=== PATIENT | female | born 1935 | race Caucasian/White ===

== ENCOUNTER 2016-07-07 13:47 | Inpatient (IN) | payer OTHER, MEDICARE ==
[~2016-07-07] VITALS: Ht 162.6 cm; Wt 72.8 kg
[2016-07-07 13:45] VITALS: BP 175/73
[~2016-07-07 13:47] MED LIST: APRESOLINE25 MG PO; ASPIRIN EC325 MG PO; ASPIRIN81 M1; BENICAR40 MG PO; BYSTOLIC10 MG PO; CALCIUM 500-VI1 EACH PO; CALTRATE 600600 MG PO; CALTRATE600 MG; CEFTIN500 MG PO; CENTRUM SILVER1 EAC4 PO; CITALOPRAM HBR10 MG PO; HYDROCHLOROTH12.5 M1; HYDROCHLOROTHIA25 MG PO; KEFLEX500 MG PO; LIPITOR10 MG; LIPITOR10 MG PO; LO-DOSE ASPIRIN81 M1 PO; PERCOCET 5/31 TABLET PO; PREVACID30 MG; PROLIA60 MG/1 ML SC; SPIRONOLACTONE25 MG PO; TOPROL XL100 MG; TRAMADOL HCL50 MG PO; VICODIN 5-3001 EACH PO; XANAX0.25 MG PO; ZANTAC150 MG PO; ZOFRAN ODT4 MG PO
[2016-07-07 23:30] VITALS: BP 160/68
[2016-07-08 05:40] VITALS: BP 164/66
[2016-07-08 15:04] VITALS: BP 118/59
[2016-07-09 05:40] VITALS: BP 172/62
[2016-07-09 06:34] VITALS: BP 140/62
[2016-07-09 15:16] VITALS: BP 133/58
[2016-07-10 06:02] VITALS: BP 155/67
[2016-07-10 15:25] VITALS: BP 117/56
[2016-07-11 04:00] VITALS: BP 157/70
[2016-07-11 15:22] VITALS: BP 120/58
[2016-07-12 06:00] VITALS: BP 157/68
[2016-07-12 14:46] VITALS: BP 121/69
[2016-07-13 05:23] VITALS: BP 155/74
[2016-07-13 15:30] VITALS: BP 148/68
[2016-07-14 05:32] VITALS: BP 149/70
[2016-07-14 15:27] VITALS: BP 142/63
[2016-07-15 06:02] VITALS: BP 149/67
[2016-07-15 06:09] LABS: BASOPHIL COUNT 0.1 K/uL (0-0.1); EOSINOPHIL (%) 5.5 % (0-5); EOSINOPHIL COUNT 0.5 K/uL (0-0.3); HEMATOCRIT 36.4 % (36.0-46.0); IMMATURE GRANULOCYTE (%) 0.5 % (0.0-0.7); LYMPHOCYTE COUNT 3.5 K/uL (1.0-2.8); MCHC 32.4 G/DL (30.0-36.0); MCV 101.7 FL (83-99); MONOCYTE (%) 12.2 % (3-12); NEUTROPHIL (%) 38.5 % (45-76); NEUTROPHIL COUNT 3.2 K/uL (1.8-6.4); RBC DIS.WIDTH-CV 13.8 % (11.8-14.6); RBC DIS.WIDTH-SD 51.3 % (39-53); RED BLOOD COUNT 3.58 M/uL (3.80-5.20); WHITE BLOOD COUNT 8.3 K/uL (4.1-10.2)
[2016-07-15 06:27] LABS: MEAN PLAT.VOLUME 9.9 uM^3 (9.5-12.4)
[2016-07-15 06:28] LABS: PLATELET COUNT 348 K/uL (156-360)
[2016-07-15 15:35] VITALS: BP 109/54
[2016-07-16 04:57] VITALS: BP 130/60
[2016-07-16] MEDS ORDERED: TRAMADOL HCL50 MG PO (11:33)
[2016-07-16] MEDS ORDERED: TYLENOL REGULA325 MG PO (11:33)
[2016-07-16] MEDS ORDERED: LOVENOX30 MG/0.3 SC (11:33)
[2016-07-16] MEDS ORDERED: PROLIA60 MG/1 ML SC (11:33)
[2016-07-16] MEDS ORDERED: LIPITOR10 MG PO (11:33)
== END 2016-07-16 15:10 | disposition home health service (06) | DRG 560 ==
LOC: 3WEST 13:47
PROVIDERS: Psychiatry & Neurology Neurology
PROC: F07M0ZZ Range of Motion and Joint Mobility Treatment of Musculoskeletal System - Whole Body (ICD-10-PCS; principal; 2016-07-07)
DX: S32.512D Fracture of superior rim of left pubis, subsequent encounter for fracture with routine healing (principal); N17.9 Acute kidney failure, unspecified; S32.592D Other specified fracture of left pubis, subsequent encounter for fracture with routine healing; S63.502D Unspecified sprain of left wrist, subsequent encounter; S43.409D Unspecified sprain of unspecified shoulder joint, subsequent encounter; I10 Essential (primary) hypertension; E78.5 Hyperlipidemia, unspecified; F41.9 Anxiety disorder, unspecified; I25.10 Atherosclerotic heart disease of native coronary artery without angina pectoris; M81.0 Age-related osteoporosis without current pathological fracture; Z74.09 Other reduced mobility; K21.9 Gastro-esophageal reflux disease without esophagitis; Z79.01 Long term (current) use of anticoagulants; Z87.828 Personal history of other (healed) physical injury and trauma; D72.829 Elevated white blood cell count, unspecified; D64.9 Anemia, unspecified; R26.2 Difficulty in walking, not elsewhere classified; S00.93XD Contusion of unspecified part of head, subsequent encounter; S80.00XD Contusion of unspecified knee, subsequent encounter; W01.0XXD Fall on same level from slipping, tripping and stumbling without subsequent striking against object, subsequent encounter
CPT/HCPCS: 82607; 82746; 84443; 85025; 97110 GO; 97530 GP; J1644